=== PATIENT | male | born 1970 | race Caucasian/White ===

== ENCOUNTER 2018-06-23 04:02 | Emergency (ER) | payer SELFPAY ==
[~2018-06-23] VITALS: Ht 172.7 cm; Wt 131.4 kg
[2018-06-23 04:08] VITALS: TEMP 97.9
[2018-06-23] MEDS ORDERED: PRINIVIL40 MG PO ×2 (04:10→04:44)
[2018-06-23] MEDS ORDERED: GLUCOPHAGE500 MG/TAB PO (04:11)
[2018-06-23] MEDS ORDERED: DIABETA 5MG5 MG/TAB PO (04:12)
[2018-06-23 05:01] VITALS: BP 153/99; PULSE 85
== END 2018-06-23 05:06 | disposition home or self-care (01) ==
LOC: COL.ER 04:02
DX: I83.891 Varicose veins of right lower extremity with other complications (principal); I10 Essential (primary) hypertension; E11.9 Type 2 diabetes mellitus without complications; Z79.84 Long term (current) use of oral hypoglycemic drugs